=== PATIENT | male | born 1995 | race African-American/Black ===

== ENCOUNTER 2023-03-10 15:29 | Emergency (ER) | payer MEDICAID ==
[~2023-03-10] VITALS: Ht 177.8 cm; Wt 86.0 kg
[2023-03-10 15:38] VITALS: BP 128/78
== END 2023-03-10 16:13 | disposition left against medical advice (07) ==
LOC: ER 15:29
DX: R56.9 Unspecified convulsions (principal); Z53.21 Procedure and treatment not carried out due to patient leaving prior to being seen by health care provider
CPT/HCPCS: 99283

== ENCOUNTER 2024-10-03 19:26 | Emergency (ER) | payer MEDICAID ==
[~2024-10-03] VITALS: Ht 182.9 cm; Wt 70.0 kg
[2024-10-03] MEDS: DIPHENHYDRAMINE 50MG/ML VIAL IM STA (19:41)
[2024-10-03] MEDS: HALOPERIDOL LACTATE 5MG/ML VIAL IM STA (19:41)
[2024-10-03] MEDS: LORAZEPAM 2MG/ML INJ IM STA (19:41)
[2024-10-03] MEDS: LEVETIRACETAM 1000MG PREMIX 100 ML IV ONE (19:45)
[2024-10-03 20:40] VITALS: O2SAT 98
[2024-10-03 20:41] VITALS: BP 148/88; PULSE 90; RESP 18; TEMP 98.5; O2SAT 100
== END 2024-10-03 20:30 | disposition left against medical advice (07) ==
LOC: ER 19:26
DX: R56.9 Unspecified convulsions (principal)
CPT/HCPCS: 96372; 99291; J1200; J1630; J2060; Z7610 ×2